=== PATIENT | male | born 1935 | race Caucasian/White ===

== ENCOUNTER 2020-02-04 13:44 | Inpatient (IN) | payer MEDICARE, OTHER ==
[~2020-02-04] VITALS: Ht 177.8 cm; Wt 73.5 kg
--- NOTE | 2020-02-04 13:56 | EKG ---
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
[2020-02-04 14:29] LABS: BASO % 0 % (0-3); EOS # 0.3 x10^3/uL (0.0-0.7); EOS % 3 % (0-3); HEMATOCRIT 47.3 % (39.0-53.0); HEMOGLOBIN 15.1 g/dL (13.0-17.5); LYMPH # 1.8 x10^3/uL (1.0-4.8); LYMPH % 23 % (24-48); MEAN CORPUSCULAR HEMOGLOBIN 30 pg (25-35); MEAN CORPUSCULAR HGB CONC 32 g/dL (31-37); MEAN CORPUSCULAR VOLUME 94 fL (79-100); MONO # 0.5 x10^3/uL (0.0-1.1); MONO % 7 % (0-9); NEUT # 5.2 x10^3uL (1.8-7.7); NEUT % 67 % (31-73); PLATELET COUNT 218 x10^3/uL (140-400); RED BLOOD COUNT 5.04 x10^6/uL (4.30-5.70); RED CELL DISTRIBUTION WIDTH 15.6 % (11.5-14.5); WHITE BLOOD COUNT 7.9 x10^3/uL (4.0-11.0)
--- NOTE | 2020-02-04 14:34 | RAD ---
PQRS Compliance Statement: One or more of the following individualized dose reduction techniques were utilized for this examination: 1. Automated exposure control 2. Adjustment of the mA and/or kV according to patient size 3. Use of iterative reconstruction technique CT head without contrast 02/04/2020 1:52 PM INDICATION: Altered mental status COMPARISON: None available TECHNIQUE: Multiple axial CT images of the head were obtained from skull base through the vertex without intravenous contrast. FINDINGS: Head: There is moderate to severe ventriculomegaly. Moderate sulcal volume loss compatible with moderate to advanced cerebral volume loss. Mild caudate atrophy bilaterally. Mild cerebellar volume loss. Low-attenuation in the periventricular white matter is suggestive of chronic small vessel ischemic changes. No acute intracranial hemorrhage. No mass, mass effect or midline shift. Alarcon-white matter differentiation is preserved. Sella and suprasellar cistern appear intact. Atherosclerotic calcifications are identified involving the cavernous segments of internal carotid arteries. Dural based calcification is identified along the anterior falx. Orbits are normal in appearance with exception of bilateral lens replacement. This complete desiccation of left maxillary sinus with high attenuation material cyst of a fungal colonization or inspissated mucus. Mastoid air cells are well aerated. IMPRESSION: No acute intracranial hemorrhage. Moderate to advanced cerebral and mild cerebellar volume loss. Ventriculomegaly is out of proportion to sulcal volume loss. Consideration may be given for normal pressure hydrocephalus. Complete opacification of the left maxillary sinus with remodeling of the sinus carey suggestive of chronic inflammation. High attenuation within the maxillary sinus could represent inspissated mucus versus fungal colonization. Electronically signed by: Danya Ferreira MD (02/04/2020 2:31 PM) [facility]
[2020-02-04 14:38] LABS: ALBUMIN 3.3 g/dL (3.4-5.0); ALBUMIN/GLOBULIN RATIO 0.8 (1.0-1.7); CALCIUM 9.6 mg/dL (8.5-10.1); CREATININE 2.3 mg/dL (0.7-1.3); GFR 27.2; POTASSIUM 3.1 mmol/L (3.5-5.1); TOTAL BILIRUBIN 0.5 mg/dL (0.2-1.0); TOTAL PROTEIN 7.5 g/dL (6.4-8.2)
[2020-02-04] MEDS ORDERED: IV NORMAL SALINE 1,000ML 1,000 ML IV ONE (14:45)
--- NOTE | 2020-02-04 14:57 | PHYS DOC ---
General Adult EDM: Chief Complaint: ALTERED MENTAL STATUS HPI: HPI: 84-year-old male presents via EMS from his care facility with altered mental status. The patient has altered mental status at baseline. He is nonverbal due to previous strokes. Entire history is gleaned from EMS reports. The patient h as been less active today than his baseline. They are concerned about an additional stroke. Review of Systems: Review of Systems: Unable to assess due to the patient not speaking. Heart Score: Risk Factors: Risk Factors: DM, Current or recent (<one month) smoker, HTN, HLP, family history of CAD, obesity. Risk Scores: Score 0 - 3: 2.5% MACE over next 6 weeks - Discharge Home Score 4 - 6: 20.3% MACE over next 6 weeks - Admit for Clinical Observation Score 7 - 10: 72.7% MACE over next 6 weeks - Early Invasive Strategies Physical Exam: PE: Constitutional: Well developed, well nourished, no acute distress. [] HENT: Normocephalic, atraumatic, bilateral external ears normal, oropharynx moist, no oral exudates, nose normal. [] Eyes: PERRLA, EOMI, conjunctiva normal, no discharge. [] Neck: Normal range of motion, no tenderness, supple, no stridor. [] Cardiovascular: Heart rate 111, regular rhythm, no murmur [] Lungs & Thorax: Bilateral breath sounds diminished [] Abdomen: Bowel sounds normal, soft, no tenderness, no masses, no pulsatile masses. [] Skin: Cool, dry, no erythema, no rash. [] Back: No tenderness, no CVA tenderness. [] Extremities: No tenderness, no cyanosis, no clubbing, ROM intact, no edema. [] Neurologic: non-verbal [] Psychologic: Unable to assess [] Current Patient Data: Labs: Laboratory Tests Test 02/04/20 13:48 02/04/20 14:10 Glucose (Fingerstick) 259 mg/dL (70-99) H White Blood Count 7.9 x10^3/uL (4.0-11.0) Red Blood Count 5.04 x10^6/uL (4.30-5.70) Hemoglobin 15.1 g/dL (13.0-17.5) Hematocrit 47.3 % (39.0-53.0) Mean Corpuscular Volume 94 fL (79-100) Mean Corpuscular Hemoglobin 30 pg (25-35) Mean Corpuscular Hemoglobin Concent 32 g/dL (31-37) Red Cell Distribution Width 15.6 % (11.5-14.5) H Platelet Count 218 x10^3/uL (140-400) Neutrophils (%) (Auto) 67 % (31-73) Lymphocytes (%) (Auto) 23 % (24-48) L Monocytes (%) (Auto) 7 % (0-9) Eosinophils (%) (Auto) 3 % (0-3) Basophils (%) (Auto) 0 % (0-3) Neutrophils # (Auto) 5.2 x10^3uL (1.8-7.7) Lymphocytes # (Auto) 1.8 x10^3/uL (1.0-4.8) Monocytes # (Auto) 0.5 x10^3/uL (0.0-1.1) Eosinophils # (Auto) 0.3 x10^3/uL (0.0-0.7) Basophils # (Auto) 0.0 x10^3/uL (0.0-0.2) EKG: EKG: [] Radiology/Procedures: Radiology/Procedures: [] Course & Med Decision Making: Course & Med Decision Making Pertinent Labs and Imaging studies reviewed. (See chart for details) The patient's labs are significant for sodium of 170. His potassium is 3.1. We will start the patient on D5W with 20 mEq of potassium. We will also give 10 units of insulin. The patient will be admitted to the hospital. The patient's lactic acid is 4.2. We must be cautious with his fluid replacement due to hypernatremia. I spoke with Dr. Owen and he has accepted the patient for admission to the ICU. 48 minutes of critical care time spent on this patient exclusive of other b illable procedures. [] Dragon Disclaimer: Dragon Disclaimer: This electronic medical record was generated, in whole or in part, using a voice recognition dictation system. Departure Departure: Impression: Primary Impression: Hypernatremia Additional Impressions: Lactic acidosis Altered mental status Qualified Codes: R41.82 - Altered mental status, unspecified Disposition: ADMITTED INPATIENT Admitting Physician: Brayden, Ahmed Condition: GUARDED Justification of Admission: Justification of Admission: Justification of Admission Dx: Yes Sepsis: Altered Mental Status Comments: Hypernatremia, lactic acidosis ENZO HILLMAN DO Feb 04, 2020 14:57
[2020-02-04] MEDS ORDERED: INSULIN REGULAR 100 UNIT/ML 3ML VIAL. IV ONE (15:00)
--- NOTE | 2020-02-04 15:13 | RAD ---
AP chest. HISTORY: Altered mental status AP view was taken of the chest. Patient's taken a poor inspiration. Heart is normal in size. There is no effusion. There are no confluent infiltrates. IMPRESSION: 1. No acute infiltrates. Electronically signed by: Rodrigo Jang MD (02/04/2020 3:10 PM) [id number]
[2020-02-04] MEDS ORDERED: INSULIN REGULAR VIAL 100 UNIT in IV NORMAL SALINE 100ML 100 ML IV PRN (15:15)
[2020-02-04] MEDS ORDERED: POTASSIUM CL 20MEQ IN D5W 1,000 ML IV ONE (15:15)
[2020-02-04] MEDS ORDERED: DEXTROSE 50% 25 GM / 50ML DISP.SYRIN. IV PRN (15:15)
[2020-02-04] MEDS ORDERED: POTASSIUM CHLORIDE 40 MEQ in IV 1/2 NORMAL SALINE 1,000 ML IV ONE (15:15)
[2020-02-04] MEDS ORDERED: ONDANSETRON PF 4 MG/2 ML VIAL. IVP PRN (16:00)
[2020-02-04] MEDS ORDERED: IV 1/2 NORMAL SALINE 1,000 ML IV ONE (16:00)
[2020-02-04 18:16] VITALS: BP 99/67
--- NOTE | 2020-02-04 18:38 | NUR ---
Pt arrived to ICU3 at 1745, VSS. He is only responsive to shaking but is unable to answer any questions. Belongings are at bedside, shoes, shirt, pajama pants. IVF running, will continue to monitor.
[2020-02-04 19:00] VITALS: BP 124/66
[2020-02-04 20:00] VITALS: BP 103/71
[2020-02-04] MEDS ORDERED: DONE10TA61 PO (20:04)
[2020-02-04] MEDS ORDERED: LIOT25TA12 PO (20:04)
[2020-02-04] MEDS ORDERED: CYAN1TAB28 PO (20:04)
[2020-02-04] MEDS ORDERED: TERA5CAP3 PO (20:04)
[2020-02-04] MEDS ORDERED: MEMA10TA PO (20:04)
[2020-02-04] MEDS ORDERED: CHOL500021 PO (20:04)
[2020-02-04] MEDS ORDERED: VITA1TAB19 PO (20:04)
[2020-02-04] MEDS ORDERED: ATOR40TA59 PO (20:04)
[2020-02-04] MEDS ORDERED: CLOP75TA57 PO (20:04)
[2020-02-04] MEDS ORDERED: ASPI-630 PO (20:04)
[2020-02-04] MEDS ORDERED: CALC-56 PO (20:04)
[2020-02-04] MEDS ORDERED: MAGN400C PO (20:04)
[2020-02-04] MEDS ORDERED: OMEG-152 PO (20:04)
[2020-02-04] MEDS ORDERED: CITA20TA9 PO (20:04)
[2020-02-04] MEDS ORDERED: LEVO150T5 PO (20:04)
[2020-02-04] MEDS ORDERED: HYDR-2145 PO (20:04)
[2020-02-04 20:22] LABS: CALCIUM 9.5 mg/dL (8.5-10.1); CREATININE 2.1 mg/dL (0.7-1.3); GFR 30.2
[2020-02-04 20:25] LABS: POTASSIUM 2.7 mmol/L (3.5-5.1)
[2020-02-04] MEDS: POTASSIUM CHLORIDE 20MEQ 100 ML IV SCH ×2 (20:43→22:51)
[2020-02-04] MEDS: IV DEXTROSE 5% 1,000 ML IV SCH (20:44)
[2020-02-04 20:53] VITALS: BP 112/63
[2020-02-04 21:18] LABS: AMORPHOUS SEDIMENT,UR PRESENT /HPF; BACTERIA,URINE 0 /HPF (0-FEW); BILIRUBIN,URINE NEG (NEG); CLARITY,URINE HAZY; COLOR,URINE YELLOW; GLUCOSE,URINE NEG (NEG); HYALINE CASTS, URINE MOD /HPF; NITRITE,URINE NEG (NEG); RBC,URINE OCC /HPF (0-2); SQUAMOUS EPITHELIAL CELL,UR FEW /LPF; UROBILINOGEN,URINE 0.2 mg/dL (0.2 mg/dL); WBC,URINE OCC /HPF (0-4)
[2020-02-04 21:53] VITALS: BP 110/73
[2020-02-04 23:00] VITALS: BP 103/72
[2020-02-05] VITALS (22 sets, daily range): BP systolic 98–180; BP diastolic 7–155
[2020-02-05] MEDS: POTASSIUM CHLORIDE 20MEQ 100 ML IV SCH ×2 (00:57→03:01)
--- NOTE | 2020-02-05 04:21 | NUR ---
Pt lethargic throughout the night; however, pt woke up at this time and was trying to yank off his clothes, and pull out his olvera catheter. Mits were placed on pt at this time. Call light at bedside. Will continue to monitor.
[2020-02-05 07:05] LABS: CALCIUM 9.1 mg/dL (8.5-10.1); CREATININE 1.9 mg/dL (0.7-1.3); GFR 33.9
[2020-02-05 07:16] LABS: BASO % 0 % (0-3); EOS # 0.4 x10^3/uL (0.0-0.7); EOS % 5 % (0-3); HEMATOCRIT 43.1 % (39.0-53.0); LYMPH # 1.4 x10^3/uL (1.0-4.8); LYMPH % 16 % (24-48); MEAN CORPUSCULAR HEMOGLOBIN 30 pg (25-35); MEAN CORPUSCULAR HGB CONC 32 g/dL (31-37); MEAN CORPUSCULAR VOLUME 93 fL (79-100); MONO # 0.5 x10^3/uL (0.0-1.1); MONO % 6 % (0-9); NEUT # 6.4 x10^3uL (1.8-7.7); NEUT % 74 % (31-73); PLATELET COUNT 178 x10^3/uL (140-400); RED BLOOD COUNT 4.64 x10^6/uL (4.30-5.70); RED CELL DISTRIBUTION WIDTH 15.4 % (11.5-14.5); WHITE BLOOD COUNT 8.8 x10^3/uL (4.0-11.0)
[2020-02-05 07:39] LABS: POTASSIUM 3.6 mmol/L (3.5-5.1)
[2020-02-05] MEDS ORDERED: ACETAMINOPHEN 650 MG SUPP.RECT. PR PRN (12:15)
[2020-02-05] MEDS: IV DEXTROSE 5% 1,000 ML IV SCH (17:07)
[2020-02-05] MEDS ORDERED: DEXTROSE 50% 25 GM / 50ML DISP.SYRIN. IV PRN (17:30)
--- NOTE | 2020-02-05 17:35 | HP ---
ADMIT DATE: 02/04/2020 HISTORY OF PRESENT ILLNESS: The patient is an 84-year-old male patient, a resident at [facility], who was brought by EMS to the Emergency Room of [facility] with altered mental status. The patient is nonverbal due to previous strokes. He does not give any useful information; however, the patient has been less active than his baseline. They are concerned about another stroke. He was evaluated in the Emergency Room and his lab work showed that his serum sodium was 170 mEq per liter. He has also lactic acidosis and hypokalemia as well as acute on chronic or chronic kidney injury and was admitted with severe hypernatremia, acute on chronic kidney injury, hypokalemia, and type 2 diabetes. PAST MEDICAL HISTORY: Significant for cerebral infarction unspecified, encephalopathy, hypothyroidism, hyperlipidemia, aphasia following other cerebrovascular disease, Alzheimer's disease, major depressive disorder, essential hypertension, muscle weakness and dementia. PAST SURGICAL HISTORY: Unobtainable. MEDICATIONS: He is currently on following medications: He is on Aricept 10 mg once a day, aspirin 81 mg once a day, atorvastatin calcium 40 mg once a day at bedtime. B complex capsule 1 capsule once a day, calcium with vitamin D 1 tablet 1 time daily, citalopram hydrobromide 20 mg once a day, clopidogrel 75 mg once a day, Cytomel tablet 25 mcg once a day, fish oil 1000 mg once a day, hydrochlorothiazide 25 mg once a day. Levothyroxine sodium 150 mcg once a day, magnesium oxide 400 mg tablet once a day, Namenda 5 mg twice a day, terazosin 5 mg once a day, vitamin B12 500 mcg once a day, vitamin D 1000 international unit once a day. FAMILY HISTORY: Unobtainable. SOCIAL HISTORY: He is apparently , but he currently resides at [facility]. No other information available. PHYSICAL EXAMINATION: GENERAL: On arrival to the Emergency Room, he apparently was lethargic; however, there was no pallor, jaundice, cyanosis or thyromegaly. No jugular venous distention. No limb edema. VITAL SIGNS: His heart rate was 109, blood pressure was 119/79, temperature was 97.8, respiratory rate was 14 and oxygen saturation was 98% on 3 liters of oxygen by nasal cannula. HEAD, EYES, EARS, NOSE AND THROAT: Showed normocephalic, atraumatic. NECK: Supple. HEART: Showed normal first and second heart sounds. No gallop or murmur. CHEST: Clear to auscultation. No crepitation or rhonchi. ABDOMEN: Distended, soft, nontender. No guarding or rigidity. No organomegaly. All hernial orifice intact. Bowel sounds normal. NEUROLOGIC: He was encephalopathic, nonverbal. LABORATORY DATA: His lab work on arrival showed white cell count was 7900, hemoglobin 15, hematocrit 47, MCV 94 and platelet count 218,000. His blood gases showed a pH of 7.36, pCO2 of 52, pO2 of 24, bicarbonate 29, oxygen saturation was 38% on FiO2 of 32. His chemistry showed a serum sodium 170, potassium 3.1, chloride 128, bicarbonate 30, anion gap of 12, BUN of 51, creatinine 2.3, estimated GFR was 27 mL per minute. His glucose was 335. Lactic acid was 4.2, calcium was 9.6. Total bilirubin, AST, ALT, alkaline phosphatase were slightly elevated. His troponin was less than 0.046. Total protein 7.5, albumin was 3.3. Urinalysis was essentially unremarkable. ASSESSMENT AND PLAN: In summary, this is an 84-year-old male patient who was admitted with severe dehydration, marked hypernatremia, hypokalemia and [id number] versus chronic kidney failure, has also type 2 diabetes. He was started on D5W. We will replenish his potassium as he has severe water deficit probably 7-8 liters or more. RYAN TURNER MD DR: GARDENIA/lety JOB#: [id number] / [id number]
--- NOTE | 2020-02-05 18:00 | NUR ---
Pt able to drink a few sips of thickened juice. when asking patient if he wants something more to drink he stated "No, I dont think so."
[2020-02-05 18:23] LABS: CREATININE 1.7 mg/dL (0.7-1.3); GFR 38.6
[2020-02-05 18:33] LABS: POTASSIUM 2.8 mmol/L (3.5-5.1)
[2020-02-05] MEDS: INSULIN LISPRO 300 UNITS/3 ML VIAL. SQ SCH ×2 (18:46→23:30)
--- NOTE | 2020-02-05 19:01 | NUR ---
This nurse spoke with pt's , and gave an update on the patient. pt's understands the care plan for the patient and will follow up in the morning. Report given to EFREM [place] stripper of care.
[2020-02-05] MEDS: POTASSIUM CHLORIDE 10MEQ 100 ML IV SCH ×5 (20:00→23:45)
--- NOTE | 2020-02-05 21:50 | PN ---
DATE: 02/05/2020 SUBJECTIVE: The patient is resting, slightly propped up in bed, no apparent distress. He does open his eyes and seems tracks, although continued to be mostly nonverbal. OBJECTIVE: GENERAL: When I examined him, he looked well and was clearly in no apparent respiratory distress. No pallor, jaundice, cyanosis or thyromegaly. No jugular venous distention. No lower limb edema. VITAL SIGNS: Her heart rate was 93, blood pressure was 109/69, temperature was 99.7, respiratory rate was 16, and oxygen saturation was 95% on 3 liters of oxygen. HEAD, EYES, EARS, NOSE AND THROAT: Showed normocephalic, atraumatic. NECK: Supple. HEART: Showed normal first and second heart sounds. No gallop or murmur. CHEST: Clear to auscultation. No crepitation or rhonchi. ABDOMEN: Distended, soft. NEUROLOGIC: He continued to be mostly nonverbal, although he does open his eyes, tracks and all his cranial nerves are grossly intact. He moves his upper extremities to much good extent than lower extremities, mostly bed bound. His intake over the last 24 hours was incompletely recorded. LABORATORY DATA: As of this morning, his serum sodium is slightly down at 164, potassium up to 3.6, chloride 126, bicarbonate 29, anion gap of 9, BUN 45, creatinine 1.9, estimated GFR was 53 mL per minute. Glucose was 150, calcium was 9.1. His white cell count is down to 8800, hemoglobin 14, hematocrit 43, MCV 93, and platelet count of 178,000. ASSESSMENT: Severe dehydration, hypernatremia, hypokalemia, acute on chronic kidney injury. He also has history of hypertension, hypothyroidism and type 2 diabetes. RYAN TURNER MD DR: GARDENIA/lety JOB#: [id number] / [id number]
--- NOTE | 2020-02-05 23:11 | NUR ---
Pt desats without oxygen on, placed oxygen at 2 Liters per NC into his mouth d/t he is a mouth breather. Will continue to monitor.
[2020-02-06] VITALS (18 sets, daily range): BP systolic 95–115; BP diastolic 54–100
[2020-02-06] MEDS: IV DEXTROSE 5% 1,000 ML IV SCH ×4 (00:27→23:00)
[2020-02-06] MEDS: POTASSIUM CHLORIDE 10MEQ 100 ML IV SCH ×3 (00:29→03:08)
[2020-02-06] MEDS ORDERED: POTASSIUM CHLORIDE 10MEQ 100 ML IV ONE (04:15)
[2020-02-06] MEDS: INSULIN LISPRO 300 UNITS/3 ML VIAL. SQ SCH ×4 (05:30→23:52)
--- NOTE | 2020-02-06 06:20 | NUR ---
At the beginning of the shift pt was trying to rip off tele leads and mits were placed. At this time pt looked up and states, "I feel better." When asked if he will not rip off cords if the mits were off and says "I won't."
[2020-02-06 07:13] LABS: HEMATOCRIT 38.3 % (39.0-53.0); HEMOGLOBIN 12.4 g/dL (13.0-17.5); RED BLOOD COUNT 4.16 x10^6/uL (4.30-5.70); RED CELL DISTRIBUTION WIDTH 15.3 % (11.5-14.5); WHITE BLOOD COUNT 7.2 x10^3/uL (4.0-11.0)
[2020-02-06 07:28] LABS: ALBUMIN 2.7 g/dL (3.4-5.0); ALBUMIN/GLOBULIN RATIO 0.7 (1.0-1.7); CALCIUM 8.5 mg/dL (8.5-10.1); CREATININE 1.6 mg/dL (0.7-1.3); GFR 41.4; POTASSIUM 3.3 mmol/L (3.5-5.1); TOTAL BILIRUBIN 0.8 mg/dL (0.2-1.0); TOTAL PROTEIN 6.4 g/dL (6.4-8.2)
--- NOTE | 2020-02-06 15:26 | NUR ---
Pt's mouth swabbed with cleanser and mouth moisturizer. pt tolerated well. pt is able to verbally respond but does not make sense at times.
--- NOTE | 2020-02-06 17:25 | PN ---
DATE: 02/06/2020 SUBJECTIVE: The patient is resting slightly propped up in bed, in no apparent respiratory distress. He is definitely more awake, alert, attempts to talk, although it is difficult to understand. His serum sodium is trending down from 170 down to 153, potassium is up at 3.3. His TSH is extremely low at less than 0.007 indicating that he probably gets too much Synthroid. PHYSICAL EXAMINATION: GENERAL: When I examined him this afternoon, he looked well and was clearly in no apparent respiratory distress. No pallor, jaundice, cyanosis or thyromegaly. No jugular venous distention, no limb edema. VITAL SIGNS: Heart rate was 67, blood pressure was 114/56, temperature was 98.6, respiratory rate was 18 and oxygen saturation was 98% on room air. HEAD, EYES, EARS, NOSE AND THROAT: Showed normocephalic, atraumatic. NECK: Supple. HEART: Showed normal first and second heart sounds. No gallop or murmur. CHEST: Clear to auscultation. No crepitation or rhonchi. ABDOMEN: Distended, soft, nontender. NEUROLOGIC: He is definitely more awake, alert. All his cranial nerves are intact. He attempts to mouth some words, although difficult to understand. He moves upper extremities to much great extent than lower extremities. His intake was incompletely recorded, output was 425. LABORATORY DATA: As of this morning, his white cell count was 7200, hemoglobin 12, hematocrit 38, MCV 92, and platelet count of 161,000. His serum sodium was 153, potassium 3.3, chloride 117, bicarbonate 30, anion gap of 6, BUN 28, creatinine 1.6, estimated GFR was 41 mL per minute. His glucose was 92, calcium was 8.5. Total bilirubin, AST, ALT, alkaline phosphatase were normal. Total protein 6.4, albumin 2.7. TSH was less than 0.007. ASSESSMENT: 1. Severe dehydration. 2. Severe hypernatremia, resolving. 3. Hypokalemia, slightly better. 4. Acute on chronic kidney injury. 5. Hypertension. 6. Hypothyroidism. 7. Type 2 diabetes mellitus; however, his TSH is almost undetectable. I will check his T3, T4, free T4. Meanwhile, we will continue with IV D5W at 150 mL. I would repeat his labs this evening to make sure that his potassium has remained stable and repeat his labs tomorrow and if he has normalized, he can be discharged back to [facility]. RYAN TURNER MD DR: GARDENIA/lety JOB#: [id number] / [id number]
[2020-02-06 19:02] LABS: CALCIUM 8.3 mg/dL (8.5-10.1); CREATININE 1.3 mg/dL (0.7-1.3); GFR 52.6; POTASSIUM 3.3 mmol/L (3.5-5.1)
[2020-02-07 00:06] VITALS: BP 106/61
[2020-02-07 03:55] VITALS: BP 92/48
[2020-02-07] MEDS: INSULIN LISPRO 300 UNITS/3 ML VIAL. SQ SCH ×3 (05:30→17:30)
[2020-02-07 06:04] VITALS: BP 100/59
[2020-02-07 06:20] LABS: CALCIUM 8.4 mg/dL (8.5-10.1); CREATININE 1.3 mg/dL (0.7-1.3); GFR 52.6; POTASSIUM 3.3 mmol/L (3.5-5.1)
[2020-02-07] MEDS: IV DEXTROSE 5% 1,000 ML IV SCH ×2 (08:30→12:38)
--- NOTE | 2020-02-07 10:53 | NUR ---
Speech therapy here at this time to evaluate swallowing, orders to remain NPO and Dr Owen will speak with family in regards to plan of care. Nurse notified Melony in regards to coming up to [facility] to discuss plan of care with Dr Owen and bilingual patient support caseworker, will be up later this evening.
[2020-02-07 13:10] VITALS: BP 106/63
--- NOTE | 2020-02-07 15:00 | NUR ---
Patients family in room at this time with physician and transplant case manager to discuss discharge plan of care and whether patient wants to go on hospice or further treatment. Per patients wishes are to remain comfortable. Plan is to discharge back to [facility] with [facility] to eval and treat. Patient in room during this talk and nodded head and appeared to agree with discharge plan, continued to grab and and daughters hand during time of talk.
[2020-02-07] MEDS ORDERED: SCOP1PAT11 TP (15:23)
--- NOTE | 2020-02-07 15:25 | DISCH ---
DISCHARGE ORDERS DISCHARGE DATE: Feb 07, 2020 FINAL DIAGNOSIS severe hypernatremia acute on chronic kidney injury hypokalemia dementia dysphagia CONDITION AT DISCHARGE: Stable Code Status: DNR/DNI HOSPICE: Yes HOSPICE EVALUATE & TREAT: Yes POST DISCHARGE ORDERS: ACTIVITY ORDERS: Resume previous activity DIET AFTER DISCHARGE: NPO DISCHARGE MEDICATIONS: Home Meds Active Scripts Scopolamine (TRANSDERM-SCOP) 1 Each Patch.td72, 1 PATCH TP Q3DAYS for excessive secretion for 30 Days, #30 PATCH Prov:RYAN TURNER MD 02/07/20 Discontinued Reported Medications Cholecalciferol (Vitamin D3) (D3-50) 50,000 Unit Capsule, 1000 UNIT PO DAILY for supplement, CAP 02/04/20 Cyanocobalamin/Folic Acid (VITAMIN X90-PQDRE ACID TABLET) 1 Each Tablet, 1 EACH PO DAILY for supplement, TAB 02/04/20 Terazosin Hcl (TERAZOSIN HCL) 5 Mg Capsule, 5 MG PO DAILY for htn, CAP 02/04/20 Memantine Hcl (NAMENDA) 10 Mg Tablet, 5 MG PO BID for ams, TAB 02/04/20 Magnesium Oxide (MAGNESIUM) 400 Mg Capsule, 200 MG PO DAILY for supplement, CAP 02/04/20 Levothyroxine Sodium (LEVOTHYROXINE SODIUM) 150 Mcg Tablet, 150 MCG PO DAILYAC for THYROID SUPPLEMENT, #30 TAB 0 Refills 02/04/20 Hydrochlorothiazide (HYDROCHLOROTHIAZIDE TABLET ) 25 Mg Tablet, 25 MG PO DAILY for DIURETIC, TAB 0 Refills 02/04/20 Citronelle-3/Dha/Epa/Fish Oil (FISH OIL 1,000 MG SOFTGEL) 1 Each Capsule, 1 EACH PO DAILY for heart health, CAP 02/04/20 Liothyronine Sodium (CYTOMEL) 25 Mcg Tablet, 25 MCG PO DAILY06 for thyroid, TAB 02/04/20 Clopidogrel Bisulfate (PLAVIX) 75 Mg Tablet, 75 MG PO DAILY for TO PREVENT BLOOD CLOTS, #30 TAB 0 Refills 02/04/20 Citalopram Hydrobromide (CELEXA) 20 Mg Tablet, 20 MG PO DAILY for depression, TAB 02/04/20 Calcium Carbonate/Vitamin D3 (CALCIUM 500 + VIT D 200 CAPLET) 1 Each Tablet, 1 EACH PO DAILY for supplement, TAB 02/04/20 Vitamin B Complex (B COMPLEX) 1 Each Tablet, 1 EACH PO DAILY for supplement, TAB 02/04/20 Atorvastatin Calcium (ATORVASTATIN CALCIUM) 40 Mg Tablet, 40 MG PO QHS for FOR CHOLESTEROL, #30 TAB 0 Refills 02/04/20 Aspirin (ASPIRIN) 81 Mg Tab.chew, 81 MG PO DAILY for blood thinner, TAB 02/04/20 Donepezil Hcl (ARICEPT) 10 Mg Tablet, 10 MG PO QHS for dementia, TAB 02/04/20 RYAN TURNER MD Feb 07, 2020 15:25
--- NOTE | 2020-02-07 16:13 | NUR ---
Report given to Leonora at [facility] [place] [facility] notified at this time. IV removed and belongings gathered. Discharge information faxed to facility and prescriptions in discharge packet.
--- NOTE | 2020-02-07 18:37 | DS ---
DATE OF DISCHARGE: 02/07/2020 HOSPITAL COURSE: The patient is an 84-year-old male patient, a resident at [facility], who was admitted with altered mental status and was found to be extremely hypernatremic. His serum sodium was 170. He has also acute on chronic kidney injury, hypokalemia and hyperglycemia and we did start him on D5W and also corrected his potassium and started him on insulin sliding scale. His serum sodium came down from 170 to 145 and his creatinine came down from 2.3 to 1.3. However, the patient's mental status has not really improved. He continued to have cough and clearly he is aspirating. He was seen by the speech therapist and per her evaluation, the patient is high risk for aspiration and we have had discussion with his and his daughter and basically they were given the option of being aggressive and placed a feeding tube and/or consider comfort and hospice and they opted for the latter one, and therefore, the patient will be discharged to [facility] to continue on hospice care. OBJECTIVE: GENERAL: When I saw him this afternoon, he was resting slightly propped up in bed, clearly in no apparent respiratory distress; however, he continued to be extremely lethargic, but no pallor, jaundice, cyanosis, or thyromegaly. No jugular venous distension. No limb edema. VITAL SIGNS: His heart rate was 81, blood pressure was 106/63, temperature was 99.9, respiratory rate was 18 and oxygen saturation was 97% on room air. HEAD, EYES, EARS, NOSE AND THROAT: Showed normocephalic, atraumatic. NECK: Supple. HEART: Showed normal first and second heart sounds. No gallop or murmur. CHEST: Clear to auscultation. No crepitation or rhonchi. ABDOMEN: Distended, soft, nontender. NEUROLOGIC: He is demented. All his cranial nerves are intact. He moves upper extremities to much greater extent than lower extremities. LABORATORY DATA: This morning showed a white cell count 7200, hemoglobin 12, hematocrit 38, MCV 92, and platelet count of 161,000. Serum sodium 145, potassium 3.3, chloride 111, bicarbonate 29, anion gap of 5, BUN 17, creatinine 1.3, estimated GFR was 52 mL per minute. His glucose 176 and calcium was 8.4. The patient was discharged to continue on Roxanol 20 mg per mL solution, take 0.25 to 1 mL every 2 hours, Ativan 2 mg per mL solution, take 0.25 to 1 mL every 2 hours, scopolamine 1.5 mg topically every 72 hours and Tylenol 650 mg suppositories rectally daily every 4 hours p.r.n. FINAL DISCHARGE DIAGNOSES: Severe dehydration and marked hypernatremia, hypokalemia, acute on chronic kidney injury, hypertension, hypothyroidism, type 2 diabetes and dementia and severe dysphagia. RYAN TURNER MD DR: GAREDNIA/lety JOB#: [id number] / [id number]
[2020-02-07 19:07] LABS: THYROXINE 5.5 ug/dL (4.5-12.0)
--- NOTE | 2020-02-07 19:27 | NUR ---
DISCHARGE NOTE: Pt d/c to [facility] via EMS. notified. Report called to nurse at [facility]. VS: 106/63, HR 77, RR 15, O2 96 on RA. Documentation and personal belongings sent with patient.
== END 2020-02-07 19:27 | disposition hospice, inpatient (51) | DRG 682 ==
LOC: ER 13:44 → 1 SOUTH 16:25 → ICU 16:26
PROVIDERS: ADMIT Internal Medicine; ATTEND Internal Medicine
DX: N17.0 Acute kidney failure with tubular necrosis (principal); G93.41 Metabolic encephalopathy; E87.0 Hyperosmolality and hypernatremia; E87.2 Acidosis; E87.6 Hypokalemia; E86.0 Dehydration; F32.9 Major depressive disorder, single episode, unspecified; E03.9 Hypothyroidism, unspecified; G30.9 Alzheimer's disease, unspecified; F02.80 Dementia in other diseases classified elsewhere, unspecified severity, without behavioral disturbance, psychotic disturbance, mood disturbance, and anxiety; N18.9 Chronic kidney disease, unspecified; I12.9 Hypertensive chronic kidney disease with stage 1 through stage 4 chronic kidney disease, or unspecified chronic kidney disease; E11.22 Type 2 diabetes mellitus with diabetic chronic kidney disease; E11.65 Type 2 diabetes mellitus with hyperglycemia; E78.5 Hyperlipidemia, unspecified; R13.10 Dysphagia, unspecified; Z86.73 Personal history of transient ischemic attack (TIA), and cerebral infarction without residual deficits; Z51.5 Encounter for palliative care
CPT/HCPCS: 36415; 70450; 71045; 80048; 80053; 81001; 82140; 82803; 82947; 83605; 83735; 83880; 84436; 84439; 84443; 84480; 84484; 85025; 85027; 87040; 93005; 96365; 96366; 96375; J1815; J3480; J7042; 92610; 99285-25